=== PATIENT | female | born 1945 | race Caucasian/White ===

== ENCOUNTER → 2017-10-28 | Day surgery (SDC) | payer MEDICARE, OTHER ==
[~2017-10-28] MED LIST: B COTAB PO; BENA25TA3 PO; CHOL50006; CO Q200C3; FLAXOIL4; KETOROLAC TROMETHAMINE 30 MG/ML (IVP) VIAL IV PUSH ONE; LACTATED RINGER'S 1000 ML INJ 1,000 ML ONE; LOSA100T3 PO; MIDAZOLAM HCL 2 MG/2 ML VIAL ONE; MISCCAP32 PO; OMEP20TA93 PO; ONDANSETRON HCL 4 MG/2 ML VIAL IV PUSH ONE; ONDANSETRON ODT 4 MG TAB ONE; PROPOFOL 100 MG/10 ML INJ IV ONE; ROSU5 PO; VALT500T PO; VITA60003 PO; [UNRECOGNIZED DRUG - CODE] PO; [UNRECOGNIZED DRUG - OTHER]; ceFAZolin 2 GM PREMIX 50 ML ONE
--- NOTE | 2017-10-29 21:04 | TN ---
cc: Dusty Lassiter DPMDusty WEN DATE OF SURGERY: 10/28/2017 INDICATIONS: The patient presented initially to the clinic complaining of a hallux varus deformity with toe contractures and a prominent fifth metatarsal head, all on the right foot. She underwent bunion surgery several years ago and developed a hallux varus as a complication. She had previous recommendation for possible fusion and wanted to look at joint salvage options and I discussed with her the option to perform a decompression osteotomy in order to correct the hallux varus as well as to reduce the contracture deformities of the digits with hammertoe procedures, possible Liliya osteotomy and a tailor's bunionectomy with ostectomy of the fifth metatarsal head as well as removal of the hardware within the foot from her previous surgery. She had tried previous wider shoes, injection and other nonsurgical treatments unsuccessfully. Risks, benefits and potential complications were explained in detail to the patient. She agreed to move forward with surgery. PROCEDURE IN DETAIL: She was seen in preop holding by myself, nursing staff, and anesthesia where the correct patient, side, and site were all confirmed to be correct and the right foot. She was then taken to the surgical suite in supine position. The right foot was prepped and draped in normal sterile fashion. Following timeout as per facility protocol, the right foot was addressed. An incision was made at the dorsomedial aspect of the first metatarsophalangeal joint in order to gain access to the 2 screws at the dorsal first metatarsal neck area, which were removed using C-arm guidance. A linear incision was made between the second and third metatarsals as well in order to gain access to the dorsal aspect of the second metatarsal neck to remove the screw from this area from previous surgery as well. Following this, attention was first directed to the dorsal aspect of the second and third metatarsal neck areas where dissection was taken down to the dorsal aspect of the bone at the second and third metatarsal neck where a shortening osteotomy was performed at the level of the metatarsal neck and the metatarsal heads were slid proximally approximately 0.5 cm and fixated using an Arthrex snap-off screw, 11 mm in length x2. After fixation of this, soft tissue correction was able to be performed in digits 2 and 3. They were both able to be reduced at the level of the metatarsophalangeal joint. Following this, attention was then directed to the medial aspect of the first metatarsal neck area where a [place] reverse osteotomy was performed in order to both shorten and increase ____. The arthrotomy was then fixated with a 3.0 mm Arthrex screw as well as a 2.0 mm trimit pin. Following a reduction of the deformity, soft tissue correction was performed to the lateral aspect where a lateral capsulorrhaphy and a medial capsulotomy were performed in order to reduce the deformity as well as an extensor hallucis longus tendon lengthening. Following reduction of the deformity and confirmation of acceptable alignment with C-arm, a dorsal incision was made at the lateral and dorsal aspect of the fifth metatarsal head where access was gained to the bony prominence and the ____ was removed using a rongeur. Final C-arm images were taken to confirm deformity reduction and adequate fixation followed by ____ 3-0 Vicryl and 3-0 nylon suture. The patient tolerated the procedure and anesthesia well without complications and was taken back to PACU with vital signs stable and vascular status intact to the right foot. She will be nonweightbearing to the right foot and will follow up in 1 week for a dressing change. SHORT OPERATIVE NOTE SURGEON: Lashanda Lassiter DPM ELECTROSLAG WELDING MACHINE OPERATOR: Walter Nguyen DPM PREOPERATIVE DIAGNOSES: 1. Hallux varus, right foot. 2. Contracture, right foot. 3. 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 4. Tailor's bunion, right foot. 5. Painful hardware, right foot. POSTOPERATIVE DIAGNOSES: 1. Hallux varus, right foot. 2. Contracture, right foot. 3. 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 4. Tailor's bunion, right foot. 5. Painful hardware, right foot. PROCEDURE PERFORMED: 1. Correction of hallux varus deformity, right foot. 2. Liliya osteotomy, right second and third metatarsals. 3. Ostectomy, right fifth metatarsal. 4. Removal of painful hardware. PATHOLOGY: None. PROPHYLAXIS: Two grams Ancef IV preoperatively. ANESTHESIA: General endotracheal anesthesia plus 20 mL of 0.5% Marcaine plain. HEMOSTASIS: Right ankle tourniquet at 250 mmHg x 108 minutes. ESTIMATED BLOOD LOSS: Minimal. DISPOSITION: Non-weightbearing on right lower extremity, in splint. Followup in clinic in 1 week for a dressing change. COMPLICATIONS: None. BEHZAD Uerna// , 07:58 PM , 08:35 PM
== END | disposition home or self-care (01) ==
LOC: ESDC 11:53
PROVIDERS: ATTEND Podiatrist Foot & Ankle Surgery
DX: M21.171 Varus deformity, not elsewhere classified, right ankle (principal); M20.5X1 Other deformities of toe(s) (acquired), right foot; M20.41 Other hammer toe(s) (acquired), right foot; M21.621 Bunionette of right foot; T84.84XA Pain due to internal orthopedic prosthetic devices, implants and grafts, initial encounter
CPT/HCPCS: 01470; 01480; 20680; 28110; 28234; 28308; 76000; C1713; J0690; J1885; J2250; J2405; J3010; J7120